=== PATIENT | female | born 1950 | race Caucasian/White ===

== ENCOUNTER → 2018-02-23 | Outpatient (CLI) | payer MEDICARE ==
--- NOTE | 2018-02-23 13:29 | MM ---
Reason for exam: screening (asymptomatic). Last mammogram was performed 7 years and 9 months ago. History: Patient is postmenopausal and is nulliparous. Cyst aspiration of the left breast. Physical Findings: A clinical breast exam by your physician is recommended on an annual basis and results should be correlated with mammographic findings. MG Screening Mammo w CAD Bilateral CC and MLO view(s) were taken. Prior study comparison: May 16, 2010, bilateral digital screening mammogram. April 18, 2009, bilateral diagnostic digital mammog. There are scattered fibroglandular densities. No significant changes when compared with prior studies. ASSESSMENT: Benign, BI-RAD 2 RECOMMENDATION: Routine screening mammogram of both breasts in 1 year.
== END | disposition home or self-care (01) ==
LOC: RADMAMWWP 07:42
PROVIDERS: ATTEND Internal Medicine Geriatric Medicine
DX: Z12.31 Encounter for screening mammogram for malignant neoplasm of breast (principal)
CPT/HCPCS: 77067

== ENCOUNTER → 2018-04-24 | Outpatient (CLI) | payer MEDICARE ==
--- NOTE | 2018-04-24 15:11 | XR ---
EXAMINATION TYPE: XR shoulder complete RT DATE OF EXAM: 04/24/2018 COMPARISON: NONE HISTORY: 67-year-old female bursitis of right shoulder, pain TECHNIQUE: 3 views FINDINGS: There is narrowing of the subacromial space. Bony irregularity at the greater tuberosity. Mild degene rative spurring at the glenohumeral joint. No acute fracture, subluxation, or dislocation. Vague luce nt lesion within the proximal humeral shaft narrow zone of transition. In the absence of any known pr imary neoplasm, a benign entity is favored. A conservative three-month follow-up exam can be performe d. IMPRESSION: 1. Possible underlying rotator cuff tear. 2. Mild degenerative change of the glenohumeral joint. 3. No acute osseous abnormality seen. 4. 1.8 cm lucent lesion with narrow zone of transition in the proximal humeral shaft. Likely benign i n the absence of any known primary neoplasm. Clinically correlate. Three-month follow-up exam recomme nded.
== END | disposition home or self-care (01) ==
LOC: RADXRMAIN 10:15
PROVIDERS: ATTEND Internal Medicine Geriatric Medicine
DX: M19.011 Primary osteoarthritis, right shoulder (principal); M25.811 Other specified joint disorders, right shoulder

== ENCOUNTER 2018-08-06 05:40 | Day surgery (SDC) | payer MEDICARE ==
[2018-08-04 09:26] VITALS: BMI 28.1
--- NOTE | 2018-08-05 16:47 | HP ---
HISTORY AND PHYSICAL REASON FOR ADMISSION: Surgery scheduled 08/06/2018 HISTORY OF PRESENT ILLNESS: Veronika Mcfadden is a 68-year-old patient seen with progressive right shoulder pain. We discussed treatment options. She elected to proceed with arthroscopy. Consent was obtained. Medical clearance was provided. PAST MEDICAL HISTORY: Hyperlipidemia, asthma. PAST SURGICAL HISTORY: Cholecystectomy hysterectomy. DAILY MEDICATIONS: Aspirin, simvastatin, Ventolin inhaler, Zyrtec. ALLERGIES: None. SOCIAL HISTORY: Patient denies current tobacco use. PHYSICAL EXAMINATION: Evaluation of the right shoulder flexion 90 degrees, abduction 110 degrees. External rotation is shy of 15 degrees. Tenderness along the anterolateral rotator cuff and anterolateral acromion rotator cuff insertion site, there is some crepitation in subacromial bursal area. Impingement positive at 80 degrees. Drop-arm sign is positive. Distal neurovascular exam is intact. RADIOGRAPHS: Right shoulder radiographs revealed a type 2 anterior acromion and cystic changes of the greater tuberosity. An MRI of the right shoulder revealed a retracted rotator cuff tear with atrophy. IMPRESSION: 1. Right shoulder retracted rotator cuff tear. 2. Hypertension. 3. Hyperlipidemia. PLAN: Right shoulder arthroscopy, subacromial decompression, possible arthroscopic rotator cuff repair and debridement. Surgery is 08/06/2018. MMODL / IJN: [id number] /
[~2018-08-06 05:40] MED LIST: ceFAZolin 1,000 MG in DEXTROSE/WATER 1 50ML.BAG IV ONE
[2018-08-06] MEDS ORDERED: LIDOCAINE 1% 20 ML VIAL (10MG/ML) FOR IV START INTRADERMA PRN (05:50)
[2018-08-06] MEDS ORDERED: DEXAMETHASONE SOD PHOSPHATE 10 MG/ML 1 ML VIAL IV ONE (05:50)
[2018-08-06] MEDS ORDERED: LACTATED RINGERS 1,000 ML IV SCH (05:50)
[2018-08-06] MEDS ORDERED: SCOPOLAMINE 1.5MG/72HR PATCH TRANSDERM ONE (05:50)
[2018-08-06] MEDS ORDERED: ONDANSETRON 4 MG/2 ML VIAL IVP ONE (05:50)
[2018-08-06] MEDS ORDERED: HYDROmorphone 1 MG/ML 1 ML SYRINGE IVP PRN (05:50)
[2018-08-06] MEDS ORDERED: MIDAZOLAM 2 MG/2 ML VIAL IV PRN (05:50)
[2018-08-06] MEDS ORDERED: MIDAZOLAM 2 MG/2 ML VIAL IVP ONE (06:56)
[2018-08-06] MEDS ORDERED: PROPOFOL 10 MG/ML 20 ML VIAL IV ONE (07:22)
[2018-08-06] MEDS ORDERED: ROPIVACAINE 5 MG/ML 30 ML VIAL ONE (07:22)
[2018-08-06] MEDS ORDERED: SUCCINYLCHOLINE CHLORIDE 100 MG/5 ML SYR IV ONE (07:22)
[2018-08-06] MEDS ORDERED: MIDAZOLAM 2 MG/2 ML VIAL ONE (07:22)
[2018-08-06] MEDS ORDERED: LIDOCAINE 1% INJ 10MG/ML (20 ML MDV) ONE (07:22)
[2018-08-06] MEDS ORDERED: fentaNYL (PF) 50 MCG/ML 2 ML AMP ONE (07:22)
--- NOTE | 2018-08-06 07:30 | P.ONQ ---
Anesthesiology Proc Note - PNB - Peripheral Nerve Block Performed Right Interscalene Single Time Out Performed: Yes ([id number]) Procedure Start Time: 06:55 Procedure Stop Time: 07:05 Indication: Acute Post-Operative Pain, Dx/Pain Location (Right Shoulder Pain), Requested by physician Sedation Type: Sedate with meaningful contact maintained Preparation: Sterile Prep Position: Supine Catheter: None Needle Types: On-Q Needle Size: 50mm (2") Needle Gauge: 21 Technique: Ultrasound Injectate: 0.5% Ropivacaine (see comment for volume) (20ml) Blood Aspirated: No Pain Paresthesia on Injection Noted: No Resistance on Injection: Normal Events: Uneventful and Well Tolerated
[2018-08-06] MEDS ORDERED: LACTATED RINGERS 1,000 ML IV ONE (09:10)
--- NOTE | 2018-08-06 09:10 | P.OP ---
Date of Procedure: 08/06/18 Preoperative Diagnosis: Right shoulder rotator cuff tear Postoperative Diagnosis: 1. Right shoulder rotator cuff tear 2. Right shoulder impingement 3. Right shoulder labral tear Procedure(s) Performed: 1. Right shoulder arthroscopic rotator cuff repair 2. Right shoulder arthroscopic subacromial decompression 3. Right shoulder arthroscopic debridement labral tear Implants: 6Arthrex swivel lock anchors Anesthesia: GETA, regional (Interscalene block) Surgeon: Navin Beckford Solid Waste Collector #1: Sarmad Hanks Estimated Blood Loss (ml): 10 Pathology: none sent Condition: stable Disposition: PACU Indications for Procedure: 68-year-old patient seen with progressive right shoulder pain. After treatment options were discussed, she elected to proceed with arthroscopy. Operative Findings: see description of procedure Description of Procedure: Patient underwent an interscalene block by department of anesthesia. The patient was then taken to the operative suite. The patient underwent a general anesthetic by the department of anesthesia. The patient was placed into a lateral position and secured. There was appropriate padding of the bony prominence. Right shoulder was then prepped and draped in normal sterile orthopedic fashion. We placed the extremity in 10 pounds of longitudinal traction. A posterior incision was now made for a posterior working portal site. The trocar and cannula were inserted into the glenohumeral joint. Arthroscopy was initiated. Spinal needle was now inserted anteriorly, to ascertain the anterior working portal site. An incision was now made in that area, a trocar was inserted followed by a probe. There was superficial tearing of the anterior superior labrum. The biceps tendon was absent with evidence of previous rupture. There was an obvious massive rotator cuff tear visualized from glenohumeral side. There were grade 1/2 chondromalacia changes of the glenoid and grade 1 chondromalacia changes of the humeral head with no osteochondral tears. I debrided the superficial labral tears down to stable tissue. I removed the biceps stump. Instruments now removed from the glenohumeral joint. Utilizing the posterior working portal site, the trocar and cannula were inserted into the subacromial space. Arthroscopy initiated. I made an incision 2 fingerbreadths lateral to the acromion. I introduced my trocar followed by my ArthroCare ablator. I now began ablating thick subacromial bursal tissue, which exposed the undersurface of the anterior acromion. There was diminished subacromial space. There was a very prominent anterior acromion. A motorized bur was introduced and a subacromial decompression was performed. I also excised some osteophytes off the inferior aspect of the distal clavicle. The acromioclavicular joint had moderate arthritis. I turned my attention to the rotator cuff. There was a 4-4.5 cm rotator cuff tear. Retracted to the glenoid however with a soft tissue grasper I was able to pull it over the footprint. I debrided the margins getting down to stable tendon tissue. I introduced my motorized bur and abraded the footprint area, getting some petechial bleeding. I now made an accessory portal site off the lateral aspect of the acromion. I punched 3 holes medial for medial row fixation with the assistance of John GRIFFIN carefully tapping the punch with a mallet as I held the punch and the camera. I now introduced both anchors into the pre-punched holes and John GRIFFIN tapped them with the mallet as I held anchors and the camera. John GRIFFIN now screwed the anchors in place a while I held the anchor guide and camera. All 12 limbs of suture were now passed through good bites of rotator cuff tendon. I now punched 3 holes for lateral row fixation again I held the punch and camera while John GRIFFIN used a mallet to tap in the punch. We now passed sutures through both anchors and individually I introduced the anchors into the pre-punch holes I held the anchor guide in position with one hand holding the camera with the other hand while John GRIFFIN tensioned the sutures and screwed in the anchors one at a time. All residual suture limbs were now clipped. We had good compression of the tendon along the entire footprint. I injected 1 mL Renue intra-articular. Instruments now removed from the portal sites. All portal sites were approximated with nylon suture. Sterile dressings were applied followed by a shoulder immobilizer. Sarmad GRIFFIN assisted in this complex case. The patient was awakened, transferred to a bed, and taken to recovery in stable condition.
[2018-08-06 09:33] VITALS: TEMP 97
[2018-08-06 10:14] VITALS: BP 132/68; PULSE 91; RESP 12
== END 2018-08-06 10:45 | disposition home or self-care (01) ==
LOC: OR 05:40
PROVIDERS: ATTEND Orthopaedic Surgery
DX: M75.101 Unspecified rotator cuff tear or rupture of right shoulder, not specified as traumatic (principal); S43.491A Other sprain of right shoulder joint, initial encounter; K21.9 Gastro-esophageal reflux disease without esophagitis; M75.41 Impingement syndrome of right shoulder; J45.909 Unspecified asthma, uncomplicated; I10 Essential (primary) hypertension; E78.5 Hyperlipidemia, unspecified; M19.011 Primary osteoarthritis, right shoulder; M25.711 Osteophyte, right shoulder; Z79.82 Long term (current) use of aspirin; Z79.899 Other long term (current) drug therapy
CPT/HCPCS: 29827; 29826; 29822; 64415; C1713 ×3; C1894; C1765; J2250; J1100; J2405; J2001; J3010; J0690; J2795; J0330; J2704

== ENCOUNTER → 2019-03-02 | Outpatient (CLI) | payer MEDICARE ==
--- NOTE | 2019-03-03 14:07 | MM ---
Reason for exam: screening (asymptomatic). Last mammogram was performed 1 year ago. History: Patient is postmenopausal and is nulliparous. Cyst aspiration of the left breast. Physical Findings: A clinical breast exam by your physician is recommended on an annual basis and results should be correlated with mammographic findings. MG 3D Screening Mammo W/Cad Bilateral CC and MLO view(s) were taken. Prior study comparison: February 23, 2018, bilateral MG screening mammo w CAD. May 16, 2010, bilateral digital screening mammogram. The breast tissue is heterogeneously dense. This may lower the sensitivity of mammography. Benign appearing bilateral calcifications. No suspicious abnormality. No significant changes when compared with prior studies. ASSESSMENT: Benign, BI-RAD 2 RECOMMENDATION: Routine screening mammogram of both breasts in 1 year.
== END | disposition home or self-care (01) ==
LOC: RADMAMWWP 07:28
PROVIDERS: ATTEND Internal Medicine Geriatric Medicine
DX: Z12.31 Encounter for screening mammogram for malignant neoplasm of breast (principal)
CPT/HCPCS: 77063; 77067

== ENCOUNTER → 2019-04-23 | Outpatient (CLI) | payer MEDICARE ==
[2019-04-23 16:22] LABS: Basophils # (A) 0.1 k/uL (0-0.2); Basophils % (A) 1 %; Eosinophils # (A) 0.4 k/uL (0-0.7); Eosinophils % (A) 5 %; HCT 45.7 % (34.0-46.0); HGB 14.6 gm/dL (11.4-16.0); Lymphocytes # (A) 2.6 k/uL (1.0-4.8); Lymphocytes % (A) 30 %; MCH 29.3 pg (25.0-35.0); MCHC 31.9 g/dL (31.0-37.0); MCV 91.7 fL (80.0-100.0); Mean Platelet Volume 7.9; Monocytes # (A) 0.5 k/uL (0-1.0); Monocytes % (A) 6 %; Neutrophils % (A) 57 %; Platelet Count 214 k/uL (150-450); RBC 4.98 m/uL (3.80-5.40); RDW 14.3 % (11.5-15.5); WBC 8.8 k/uL (3.8-10.6)
[2019-04-23 16:26] LABS: Potassium 4.5 mmol/L (3.5-5.1)
== END | disposition home or self-care (01) ==
LOC: LABPAT 15:27
PROVIDERS: ATTEND Orthopaedic Surgery
DX: Z01.812 Encounter for preprocedural laboratory examination (principal); G56.01 Carpal tunnel syndrome, right upper limb
CPT/HCPCS: 36415; 80051; 85025

== ENCOUNTER 2019-04-29 10:17 | Day surgery (SDC) | payer MEDICARE ==
[2019-04-21 14:16] VITALS: BMI 29.0
--- NOTE | 2019-04-28 17:40 | HP ---
HISTORY AND PHYSICAL DATE OF SURGERY: 04/29/2019 Veronika Mcfadden is a 68-year-old patient seen with symptomatic right carpal tunnel syndrome along with a right small finger trigger finger. We discussed options for treatment. She elected to proceed with surgical intervention to include decompression of right median nerve and release A1 alex, right small finger. Consent was obtained. PAST MEDICAL HISTORY: Asthma. PAST SURGICAL HISTORY: 1. Cholecystectomy. 2. Hysterectomy. 3. Right shoulder arthroscopy. DAILY MEDICATIONS: Simvastatin, Ventolin inhaler. ALLERGIES: NONE. SOCIAL HISTORY: She denies current tobacco use. PHYSICAL EVALUATION OF THE RIGHT HAND: She has a positive carpal compression, positive carpal Tinel's causing numbness and tingling exacerbation in median nerve distribution. She has tenderness along the A1 alex of the right small finger. There is clicking and catching with range of motion. She has a good radial pulse. She has good range of motion of her digits otherwise. RADIOGRAPHS: Radiographs of the right hand and wrist reveal some osteoarthritic changes. An EMG of the upper extremity revealed carpal tunnel syndrome. IMPRESSION: 1. Right carpal tunnel syndrome. 2. Right small finger trigger finger. 3. Asthma. PLAN: Decompression, right median nerve, and release A1 alex, right small finger. MMODL / IJN: [id number] /
[~2019-04-29 10:17] MED LIST changes: +DEXAMETHASONE SOD PHOSPHATE 10 MG/ML 1 ML VIAL IV ONE; +HYDROmorphone 0.5 MG/0.5 ML SYRINGE IVP PRN; +LACTATED RINGERS 1,000 ML IV SCH; +LIDOCAINE 1% 20 ML VIAL (10MG/ML) FOR IV START INTRADERMA PRN; -ceFAZolin 1,000 MG in DEXTROSE/WATER 1 50ML.BAG IV ONE
[2019-04-29 10:49] VITALS: TEMP 98.5
[2019-04-29] MEDS ORDERED: ONDANSETRON 4 MG/2 ML VIAL IVP ONE (11:18)
[2019-04-29] MEDS ORDERED: PROPOFOL 10 MG/ML 20 ML VIAL IV ONE (11:23)
[2019-04-29] MEDS ORDERED: fentaNYL (PF) 50 MCG/ML 2 ML AMP ONE (11:23)
[2019-04-29] MEDS ORDERED: LIDOCAINE 1% INJ 10MG/ML (20 ML MDV) ONE (11:23)
[2019-04-29] MEDS ORDERED: MIDAZOLAM 2 MG/2 ML VIAL ONE (11:23)
[2019-04-29] MEDS ORDERED: BUPIVACAINE (PF) 0.25% 30 ML VIAL SQ ONE ×2 (11:38→11:41)
--- NOTE | 2019-04-29 12:09 | P.OP ---
Date of Procedure: 04/29/19 Preoperative Diagnosis: 1. Right carpal tunnel syndrome 2. Right small finger trigger finger Postoperative Diagnosis: Same Procedure(s) Performed: 1. Decompression right median nerve 2. Release A1 alex right small finger Anesthesia: MAC, local Surgeon: Navin Beckford Estimated Blood Loss (ml): 1 Pathology: none sent Condition: stable Disposition: PACU Indications for Procedure: 68-year-old patient seen with symptomatic right carpal tunnel syndrome as well as a symptomatic right small finger trigger finger. After having treatment options discussed, she elected to proceed with decompression right median nerve and release A1 alex right small finger. Operative Findings: see description of procedure Description of Procedure: The patient was taken to the operative suite. Patient received preoperative IV antibiotics. The patient received IV sedation by the department of anesthesia. A well-padded tourniquet was placed proximal right upper extremity. The right upper extremity was prepped and draped in the normal sterile orthopedic fashion. Both proposed incision sites were infiltrated with quarter percent Marcaine totaling 15 mL. Once sufficient local analgesia was noted the extremity was elevated and tourniquet insufflated to 250. I made an incision beginning at the distal volar wrist crease extending 3 cm sharply through skin in line with the fourth metacarpal. I now dissected down through the palmar fascia to the transverse carpal ligament. I now incised the transverse carpal ligament. I now completed the release of transcarpal ligament both proximally and distally with blunt Metzenbaums. There was good complete release of the transverse carpal ligament with good decompression of the nerve. I now turned my attention to the A1 alex area the right small finger. I made an incision measuring approximately 2 cm sharply through skin. I now carefully dissected down to the A1 alex. Identified the A1 alex. I release A1 alex with blunt tenotomies. There was good complete release of the A1 alex. There was good excursion of the tendon with no impingement. Both incisions had good hemostasis. We irrigated both incisions. Skin margins of both incision sites were proximal nylon suture. Sterile dressings were applied. The tourniquet was now released with immediate capillary refill noted. I applied sterile web roll followed by a sterile dressing. The patient had a procedure well. The patient was awakened and transferred to recovery stable condition.
[2019-04-29 12:37] VITALS: BP 143/83; PULSE 88; RESP 16
== END 2019-04-29 12:45 | disposition home or self-care (01) ==
LOC: OR 10:17
PROVIDERS: ATTEND Orthopaedic Surgery
DX: G56.01 Carpal tunnel syndrome, right upper limb (principal); M65.351 Trigger finger, right little finger; J45.909 Unspecified asthma, uncomplicated; E78.5 Hyperlipidemia, unspecified; Z79.82 Long term (current) use of aspirin; Z79.899 Other long term (current) drug therapy; Z90.49 Acquired absence of other specified parts of digestive tract; Z90.710 Acquired absence of both cervix and uterus; Z98.890 Other specified postprocedural states
CPT/HCPCS: 64721; 26055; J2250; J1100; J2405; J0690; J2001; J3010; J2704

== ENCOUNTER → 2019-10-26 | Outpatient (CLI) | payer MEDICARE ==
--- NOTE | 2019-10-26 10:42 | XR ---
EXAMINATION TYPE: XR chest 2V DATE OF EXAM: 10/26/2019 COMPARISON: None INDICATION: Cough TECHNIQUE: Frontal and lateral views of the chest are obtained. FINDINGS: The heart size is normal. The pulmonary vasculature is normal. The lungs are clear. IMPRESSION: 1. No acute pulmonary process.
== END | disposition home or self-care (01) ==
LOC: RADXRMAIN 10:09
PROVIDERS: ATTEND Internal Medicine Geriatric Medicine
DX: J45.991 Cough variant asthma (principal)
CPT/HCPCS: 71046

== ENCOUNTER → 2020-07-19 | Outpatient (CLI) | payer MEDICARE ==
--- NOTE | 2020-07-25 11:42 | MM ---
Reason for exam: screening (asymptomatic). Last mammogram was performed 1 year and 5 months ago. History: Patient is postmenopausal and is nulliparous. Cyst aspiration of the left breast. Physical Findings: A clinical breast exam by your physician is recommended on an annual basis and results should be correlated with mammographic findings. MG 3D Screening Mammo W/Cad Bilateral CC and MLO view(s) were taken. Prior study comparison: March 02, 2019, bilateral MG 3d screening mammo w/cad. February 23, 2018, bilateral MG screening mammo w CAD. The breast tissue is heterogeneously dense. This may lower the sensitivity of mammography. No significant changes when compared with prior studies. ASSESSMENT: Benign, BI-RAD 2 RECOMMENDATION: Routine screening mammogram of both breasts in 1 year.
== END | disposition home or self-care (01) ==
LOC: RADMAMWWP 14:56
PROVIDERS: ATTEND Internal Medicine Geriatric Medicine
DX: Z12.31 Encounter for screening mammogram for malignant neoplasm of breast (principal)
CPT/HCPCS: 77063; 77067

== ENCOUNTER → 2021-09-14 | Outpatient (CLI) | payer MEDICARE ==
--- NOTE | 2021-09-17 13:16 | MM ---
Reason for exam: screening (asymptomatic). Last mammogram was performed 1 year and 2 months ago. History: Patient is postmenopausal and is nulliparous. Cyst aspiration of the left breast. Physical Findings: A clinical breast exam by your physician is recommended on an annual basis and results should be correlated with mammographic findings. MG 3D Screening Mammo W/Cad Bilateral CC and MLO view(s) were taken. XCCL view(s) were taken of the left breast. Prior study comparison: July 19, 2020, bilateral MG 3d screening mammo w/cad. March 02, 2019, bilateral MG 3d screening mammo w/cad. The breast tissue is heterogeneously dense. This may lower the sensitivity of mammography. There is chronic nodularity in the left breast. Benign secretory and some grouped course calcifications are unchanged. No significant changes when compared with prior studies. ASSESSMENT: Benign, BI-RAD 2 RECOMMENDATION: Routine screening mammogram of both breasts in 1 year. Patient should continue monthly self breast exams. A negative report should not preclude additional follow up of suspicious palpable abnormalities.
== END | disposition home or self-care (01) ==
LOC: RADMAMWWP 11:55
PROVIDERS: ATTEND Internal Medicine Geriatric Medicine
DX: Z12.31 Encounter for screening mammogram for malignant neoplasm of breast (principal); Z78.0 Asymptomatic menopausal state
CPT/HCPCS: 77063; 77067

== ENCOUNTER → 2022-09-16 | Outpatient (CLI) | payer MEDICARE ==
--- NOTE | 2022-09-16 09:29 | BD ---
EXAMINATION TYPE: Axial Bone Density DATE OF EXAM: 09/16/2022 COMPARISON: BASELINE CLINICAL HISTORY: 72 years old Female. ICD-10 CODE: M81.0 age related osteoporosis Height: 61.5 Weight: 156 FRAX RISK QUESTIONS: Family History (Parent hip fracture): NO History of Fracture in Adulthood: NO Secondary Osteoporosis: NO Rheumatoid Arthritis: NO RISK FACTORS HISTORY OF: Family History of Osteoporosis: NO Active: YES Diet low in dairy products/other sources of calcium: NO Postmenopausal woman: YES Lost more than 2 inches in height since high school: NO Frequent falls: NO Poor Health: NO MEDICATIONS: Additional Medications: YES BABY ASPIRIN , CALCUIM , CHOLESTEROL, ZYRTEC EXAM MEASUREMENTS: Bone mineral densitometry was performed using the [employer] System. Bone mineral density as measured about the Lumbar spine is: ----- L1-L4(G/cm2): 1.334 T Score Values are as follows: ----- L1: -0.2 ----- L2: 0.1 ----- L3: 2.5 ----- L4: 2.2 ----- L1-L4: 1.3 Bone mineral density BASELINE Bone mineral density about the R hip (g/cm2): 0.911 Bone mineral density about the L hip (g/cm2): 0.898 T Score values are as follows: -----R Neck: -1.6 -----L Neck: -1.6 -----R Total: -0.8 -----L Total: -0.9 Bone mineral density BASELINE FRAX%s: The graph provided illustrates a 11.2% chance for a major osteoporotic fx and a 2.2% chance f or the hips probability for fx in 10 years time. IMPRESSION: Osteopenia (T Score between -2.5 and -1). There is slightly increased risk of fracture and the patient may be considered for treatment. Re-Screen 2-5 years. NOTE: T-SCORE=SD OF THE YOUNG ADULT MEAN.
--- NOTE | 2022-09-17 08:18 | MM ---
Reason for Exam: Screening (asymptomatic). Last screening mammogram was performed 12 month(s) ago. Patient History: Menarche at age 9. Patient has no children. Left ovary removed at age 46. Right ovary removed at age 46. Hysterectomy at age 46. Postmenopausal. Cyst Aspiration on the Left side. Risk Values: Veronika 5 year model risk: 2.2%. NCI Lifetime model risk: 5.0%. Prior Study Comparison: 03/02/2019 Bilateral Screening Mammogram, [facility]. 07/19/2020 Bilateral Screening Mammogram, [facility]. 09/14/2021 Bilateral Screening Mammogram, [facility]. Tissue Density: The breast tissue is heterogeneously dense. This may lower the sensitivity of mammography. Findings: Analyzed By CAD. There is no suspicious group of microcalcifications or new suspicious mass in either breast. Overall Assessment: Benign, BI-RAD 2 Management: Screening Mammogram of both breasts in 1 year. A clinical breast exam by your physician is recommended on an annual basis and results should be correlated with mammographic findings. Electronically signed and approved by: Blair Duran M.D. Radiologis
== END | disposition home or self-care (01) ==
LOC: RADMAMWWP 07:40
PROVIDERS: ATTEND Internal Medicine Geriatric Medicine
DX: Z12.31 Encounter for screening mammogram for malignant neoplasm of breast (principal); M85.89 Other specified disorders of bone density and structure, multiple sites; M81.0 Age-related osteoporosis without current pathological fracture; Z78.0 Asymptomatic menopausal state; Z98.890 Other specified postprocedural states
CPT/HCPCS: 77063; 77067; 77080

== ENCOUNTER → 2023-03-12 | Outpatient (CLI) | payer MEDICARE ==
--- NOTE | 2023-03-12 11:50 | XR ---
EXAMINATION TYPE: XR shoulder complete RT DATE OF EXAM: 03/12/2023 COMPARISON: NONE HISTORY: Pain from fall TECHNIQUE: Right Shoulder examined in 3 projections. FINDINGS: The humeral head articulates with the glenoid. The acromio-clavicular junction is normal. No acute fractures or dislocations are evident. A follow up study can be performed 7-10 days from acute trauma for continued pain. MRI can be perfor med if soft tissue evaluation would be of benefit. IMPRESSION: 1. No acute osseous right shoulder abnormality.
--- NOTE | 2023-03-12 11:57 | XR ---
EXAMINATION TYPE: XR humerus RT DATE OF EXAM: 03/12/2023 COMPARISON: None HISTORY: Fall, pain TECHNIQUE: 2 view right humerus FINDINGS: Humeral head articulates with the glenoid. There may be some elevation of the humeral head in relation to the glenoid and narrowing of the acromioclavicular junction. Chronic rotator cuff tear is not excluded. No acute fractures or dislocations are evident. IMPRESSION: 1. No acute osseous abnormality right humerus. 2. Consider rotator cuff tear, MRI could be performed as clinically indicated
--- NOTE | 2023-03-12 11:59 | XR ---
EXAMINATION TYPE: XR ribs RT w pa chest xray DATE OF EXAM: 03/12/2023 COMPARISON: Chest x-ray 10/26/2019 HISTORY: Fall, pain TECHNIQUE: AP chest with two-view right ribs FINDINGS: Heart size normal. Pulmonary vasculature is normal. Lungs are clear. No pneumothorax is evident. No displaced rib fractures are identified. Follow-up can be performed as clinically indicated. There is some mild costochondral cartilage calcification noted. IMPRESSION: 1. No acute right rib fractures identified. 2. No acute pulmonary process.
== END | disposition home or self-care (01) ==
LOC: RADXRMAIN 11:02
PROVIDERS: ATTEND Physician Assistant
DX: S23.41XA Sprain of ribs, initial encounter (principal); M79.601 Pain in right arm; M25.511 Pain in right shoulder; W19.XXXA Unspecified fall, initial encounter

== ENCOUNTER → 2023-03-31 | Outpatient (CLI) | payer MEDICARE ==
--- NOTE | 2023-04-02 08:51 | MR ---
EXAMINATION TYPE: MR shoulder RT wo con DATE OF EXAM: 03/31/2023 8:32 AM COMPARISON: NONE HISTORY: Rt shoulder pain, fall, prior surgery on RTC TECHNIQUE: Multiplanar multispin echo imaging of the right shoulder was performed. FINDINGS: Rotator cuff : Postoperative changes of prior rotator cuff repair. There is high-grade full-thickness partial tear of the supraspinatus tendon proximal to the critical zone with fluid filled gap of 7.1 mm. Mild retraction is seen. Several fibers remain intact. There is also associated tendinosis of the supraspinatus tendon. There is tendinosis of subscapularis tendon with partial tear noted. There is also intrasubstance tear of the infraspinatus tendon. Bursa: Small joint effusion noted. Musculature: There is no muscular tear, contusion, or atrophy. Acromioclavicular joint : There are mild degenerative changes of the acromioclavicular joint. There is no anterior or lateral acromial downsloping. Osseous structures : There are no fractures or regions of abnormal bone marrow signal intensity. Long biceps tendon : The biceps tendon is normally situated within the bicipital groove. No complete or partial biceps tendon tear is present. Glenohumeral Joint fluid : There is no glenohumeral joint effusion. Cartilage and Bone : Screw defects noted within the humeral head. No focal hyaline cartilage defects are noted. No Hill-Sachs, reverse Hill-Sachs, or bony Bankart lesions are seen. Labrum : Anterior inferior glenoid labral tear noted. OTHER FINDINGS : none IMPRESSION: 1. Postoperative changes of prior rotator cuff repair. There is high-grade full-thickness partial tea r of the supraspinatus tendon proximal to the critical zone with fluid filled gap of 7.1 mm. Mild ret raction is seen. Several fibers remain intact. There is also associated tendinosis of the supraspinat us tendon. There is tendinosis of subscapularis tendon with partial tear noted. There is also intrasu bstance tear of the infraspinatus tendon. 2.Anterior inferior glenoid labral tear noted.
== END | disposition home or self-care (01) ==
LOC: RADMRIMAIN 07:40
PROVIDERS: ATTEND Internal Medicine Geriatric Medicine
DX: S43.432A Superior glenoid labrum lesion of left shoulder, initial encounter (principal); S46.011A Strain of muscle(s) and tendon(s) of the rotator cuff of right shoulder, initial encounter; M67.813 Other specified disorders of tendon, right shoulder; Z98.890 Other specified postprocedural states

== ENCOUNTER 2023-06-18 05:31 | Day surgery (SDC) | payer MEDICARE ==
[2023-06-16 10:25] VITALS: BMI 27.4
--- NOTE | 2023-06-17 20:20 | HP ---
HISTORY AND PHYSICAL DATE OF SURGERY: 06/18/2023. HISTORY OF PRESENT ILLNESS: Veronika Mcfadden is a 73-year-old patient seen with progressive right shoulder pain. After treatment options were discussed, she elected to proceed with right shoulder arthroscopy. Consent regarding the procedure was obtained. Preoperative medical clearance was provided by Dr. Renan Ponce. PAST MEDICAL HISTORY: Asthma. PAST SURGICAL HISTORY: Cholecystectomy, hysterectomy, shoulder arthroscopy, carpal tunnel release, and trigger finger release. DAILY MEDICATIONS: 1. Rosuvastatin. 2. Zyrtec. ALLERGIES: None. SOCIAL HISTORY: She denies tobacco use. PHYSICAL EVALUATION OF THE RIGHT SHOULDER: Flexion is 130 degrees. Abduction is 100 degrees. External rotation is 10 degrees with severe weakness. Tenderness along the anterolateral acromion and rotator cuff insertion. Impingement is positive at 80. Drop-arm sign is positive. Distal neurovascular exam is intact. IMAGING STUDIES: Radiographs of the right shoulder revealed evidence for acromioclavicular joint osteoarthritis and cystic changes of the tuberosity. MRI right shoulder revealed rotator cuff tear and labral tear. IMPRESSION: 1. Right shoulder impingement with rotator cuff tear. 2. Right shoulder labral tear. 3. Hyperlipidemia. PLAN: Right shoulder arthroscopy with rotator cuff repair and debridement. MMODL / IJN: [id number] /
[~2023-06-18 05:31] MED LIST changes: -DEXAMETHASONE SOD PHOSPHATE 10 MG/ML 1 ML VIAL IV ONE; +DEXAMETHASONE SOD PHOSPHATE 4 MG/ML 1 ML VIAL IV ONE; -HYDROmorphone 0.5 MG/0.5 ML SYRINGE IVP PRN; +LIDOCAINE 1% (10MG/ML) FOR IV START INTRADERMA PRN; -LIDOCAINE 1% 20 ML VIAL (10MG/ML) FOR IV START INTRADERMA PRN; +ONDANSETRON 4 MG/2 ML VIAL IVP ONE
[2023-06-18] MEDS ORDERED: ONDANSETRON 4 MG/2 ML VIAL ONE (06:19)
[2023-06-18] MEDS ORDERED: MIDAZOLAM 2 MG/2 ML VIAL IVP ONE (06:51)
[2023-06-18] MEDS ORDERED: MIDAZOLAM 2 MG/2 ML VIAL IV PRN (07:00)
[2023-06-18] MEDS ORDERED: HYDROmorphone 0.5 MG/0.5 ML SYRINGE IVP PRN (07:00)
[2023-06-18 07:05] VITALS: RESP 16
[2023-06-18] MEDS ORDERED: LIDOCAINE 1% INJ 10MG/ML (20 ML MDV) ONE (07:25)
[2023-06-18] MEDS ORDERED: ROPIVACAINE 5 MG/ML 30 ML VIAL ONE (07:25)
[2023-06-18] MEDS ORDERED: PROPOFOL 10 MG/ML 20 ML VIAL IV ONE (07:25)
[2023-06-18] MEDS ORDERED: ePHEDrine 50 MG/ML 1 ML VIAL ONE (07:25)
[2023-06-18] MEDS ORDERED: NEOSTIGMINE 1 MG/ML 10 ML VIAL ONE (07:25)
[2023-06-18] MEDS ORDERED: GLYCOPYRROLATE 0.2 MG/ML 2 ML VIAL ONE (07:25)
[2023-06-18] MEDS ORDERED: SUCCINYLCHOLINE CHLORIDE 200 MG/10 ML VIAL IV ONE (07:25)
[2023-06-18] MEDS ORDERED: fentaNYL (PF) 50 MCG/ML 2 ML AMP ONE (07:25)
[2023-06-18] MEDS ORDERED: DEXAMETHASONE SOD PHOSPHATE 4 MG/ML 1 ML VIAL ONE (07:25)
[2023-06-18] MEDS ORDERED: ROCURONIUM 10 MG/ML (5 ML VIAL) IV ONE (07:25)
[2023-06-18] MEDS ORDERED: ALBUTEROL HFA INHALER INHALATION ONE (07:25)
[2023-06-18] MEDS ORDERED: KETOROLAC 15 MG/ML 1 ML VIAL ONE (07:25)
--- NOTE | 2023-06-18 08:46 | P.ANPRN ---
Procedure Note - Anesthesia - Nerve Block Performed Right Interscalene Single Time Out Performed: Yes ([id number]) Date of Procedure: 06/18/23 Procedure Start Time: 06:53 Procedure Stop Time: 06:58 Location of Patient: PreOp Indication: Acute Post-Operative Pain, Requested by Surgeon Sedation Type: Sedate with meaningful contact maintained Preparation: Sterile Prep Position: Sitting Catheter: None Needle Types: Pajunk Needle Gauge: Other (see comment) (22) Ultrasound used to visualize needle placement: Yes Ultrasound used to observe medication spread: Yes Injectate: 0.5% Ropivacaine (see comment for volume) (20 mL of 0.5% ropivacaine mixed with 40 MG of dexamethasone) Blood Aspirated: No Pain Paresthesia on Injection Noted: No Resistance on Injection: Normal Image Stored and Saved: Yes Events: Uneventful and Well Tolerated
--- NOTE | 2023-06-18 09:05 | P.OP ---
Date of Procedure: 06/18/23 Preoperative Diagnosis: Right shoulder impingement Postoperative Diagnosis: 1. Right shoulder massive rotator cuff 2. Right shoulder impingement 3. Right shoulder acromioclavicular joint osteoarthritis 4. Right shoulder loose body 5. 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 Right shoulder arthroscopic rotator cuff repair 2. Right shoulder arthroscopic subacromial decompression 3. Right shoulder arthroscopic Lincoln procedure 4. Right shoulder arthroscopic removal loose body Implants: 3Arthrex 4.75 swivel lock anchors Anesthesia: GETA, regional (Interscalene block) Surgeon: Navin Beckford Plate Molder #1: Sarmad Hanks Estimated Blood Loss (ml): 11 Pathology: none sent Condition: stable Disposition: PACU (Noted) Indications for Procedure: 73-year-old patient seen with amish shoulder pain. After treatment options were discussed, she elected to proceed with arthroscopy. Operative Findings: see description of procedure Description of Procedure: Patient underwent an interscalene block by department of anesthesia. The patient was then taken to the operative suite. The patient underwent a general anesthetic by the department of anesthesia. The patient was placed into a lateral position and secured. There was appropriate padding of the bony prominence. Right shoulder was then prepped and draped in normal sterile orthopedic fashion. We placed the extremity in 10 pounds of longitudinal traction. A posterior incision was now made for a posterior working portal site. The trocar and cannula were inserted into the glenohumeral joint. Arthroscopy was initiated. Spinal needle was now inserted anteriorly, to ascertain the anterior working portal site. An incision was now made in that area, a trocar w as inserted followed by a probe. The biceps was absent. There was an area of grade 4 chondromalacia involving the anterior aspect of the humeral head measuring 1 x 2 cm. There were no osteochondral flap tears present. The labrum was frayed but no significant tearing. I did run into a loose body. I introduced loose body forceps. That without difficulty. At this point instruments removed from glenohumeral joint. Utilizing the posterior working portal site, the trocar and cannula were inserted into the subacromial space. Arthroscopy initiated. I made an incision 2 fingerbreadths lateral to the acromion. I introduced my trocar followed by my ArthroCare ablator. I now began ablating thick subacromial bursal tissue, which exposed the undersurface of the anterior acromion. There was diminished subacromial space. There was a very prominent anterior acromion. A motorized bur was introduced and a subacromial decompression was performed. I also excised some osteophytes off the inferior aspect of the distal clavicle. The AC joint was visualized and noted to be fairly arthritic. The motorized bur was introduced in the anterior portal site and a Lincoln procedure was performed without difficulty, decompressing the AC joint nicely. I turned my attention to the rotator cuff. There was a 2-1/2 cm tear involving the distal supraspinatus. There was evidence for previous repair. There was a large intrasubstance tear involving the supraspinatus tendon as well that measured approximately 3.5 cm. I debrided all the margins getting down to stable tendon tissue. I started by repairing the intrasubstance tear with [id number] sutures. I passed 5 [id number] sutures with the assistance of John GRIFFIN. I now repaired the intrasubstance tear in a [id number] fashion. We good repair of the intrasubstance tear. I now abraded the footprint with a motorized bur. I now created assembler liquid center portal site off the lateral acromion. I punched the hole for insertion of the medial anchor. I inserted one Arthrex 4.75 anchor with 3 sutures. I now passed all substance limbs of suture through good bites of rotator cuff tendon. I also passed 2 additional sutures to augment this repair. I now punched to holes lateral for lateral fixation. I now crisscrossed the sutures. I started anteriorly and passed 4 limbs of suture through the eyelet of a Arthrex 4.75 swivel lock anchor. I placed the eyelet into the pre-punch hole. I held in position while John GRIFFIN tension all 4 limbs of suture and Depuy the anchor with good fixation noted. We now passed remaining for suture limbs through the eyelet of a 4.75 swivel lock anchor. I placed into the posterior lateral pre-punch hole. I held in position while John GRIFFIN tension all 4 suture limbs and deployed that anchor with good fixation noted. All residual suture limbs were now clipped. We had good compression of the tendon along the entire footprint. Instruments now removed from the portal sites. All portal sites were approximated with nylon suture. Sterile dressings were applied followed by a shoulder immobilizer. Sarmad GRIFFIN assisted in this complex case. The patient was awakened, transferred to a bed, and taken to recovery in stable condition.
[2023-06-18 09:42] VITALS: TEMP 97.9
[2023-06-18 10:43] VITALS: BP 118/74; PULSE 75
== END 2023-06-18 10:40 | disposition home or self-care (01) ==
LOC: OR 05:31
PROVIDERS: ATTEND Orthopaedic Surgery
DX: M75.41 Impingement syndrome of right shoulder (principal); S43.431A Superior glenoid labrum lesion of right shoulder, initial encounter; M75.101 Unspecified rotator cuff tear or rupture of right shoulder, not specified as traumatic; E78.5 Hyperlipidemia, unspecified; M19.011 Primary osteoarthritis, right shoulder; M24.011 Loose body in right shoulder; M94.211 Chondromalacia, right shoulder; G89.18 Other acute postprocedural pain; J45.909 Unspecified asthma, uncomplicated; Z90.710 Acquired absence of both cervix and uterus; Z90.79 Acquired absence of other genital organ(s); Z79.899 Other long term (current) drug therapy; Z79.890 Hormone replacement therapy; X58.XXXA Exposure to other specified factors, initial encounter
CPT/HCPCS: 64415; 29827; 29826; C1713 ×2; C1894; J2250; J0330; J1100; J2710; J0690; J2405; J2001; J3010; J2795; J1885; J2704

== ENCOUNTER → 2023-09-24 | Outpatient (CLI) | payer MEDICARE ==
--- NOTE | 2023-09-25 10:04 | MM ---
Reason for Exam: Screening (asymptomatic). Last screening mammogram was performed 12 month(s) ago. Patient History: Menarche at age 9. Patient has no children. Left ovary removed at age 46. Right ovary removed at age 46. Hysterectomy at age 46. Postmenopausal. Cyst Aspiration on the Left side. Risk Values: Veronika 5 year model risk: 2.2%. NCI Lifetime model risk: 4.7%. Prior Study Comparison: 07/19/2020 Bilateral Screening Mammogram, [facility]. 09/14/2021 Bilateral Screening Mammogram, [facility]. 09/16/2022 Bilateral MG 3D screening mammo w/cad, [facility]. Tissue Density: The breast tissue is heterogeneously dense. This may lower the sensitivity of mammography. Findings: Analyzed By CAD. There is no suspicious group of microcalcifications or new suspicious mass. Benign-appearing calcifications bilaterally. Overall Assessment: Benign, BI-RAD 2 Management: Screening Mammogram of both breasts in [address] [facility] will attempt to contact patient to return for supplemental views and ultrasound if indicated. Patient should continue monthly self-breast exams. A clinical breast exam by your physician is recommended on an annual basis. This exam should not preclude additional follow-up of suspicious palpable abnormalities. Note on Veronika scores and lifetime risk: 1. A Veronika score greater than 3% is considered moderate risk. If this is the case, consider specialist referral to assess eligibility for a risk reducing agent. 2. If overall lifetime risk for the development of breast cancer is 20% or higher, the patient may qualify for future screening with alternating mammogram and breast MRI. Electronically signed and approved by: Keenan Sierra DO
== END | disposition home or self-care (01) ==
LOC: RADMAMWWP 07:53
PROVIDERS: ATTEND Internal Medicine Geriatric Medicine
DX: Z12.31 Encounter for screening mammogram for malignant neoplasm of breast (principal); Z78.0 Asymptomatic menopausal state
CPT/HCPCS: 77063; 77067

== ENCOUNTER → 2024-06-22 | Outpatient (CLI) | payer MEDICARE ==
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
== END | disposition home or self-care (01) ==
LOC: RADXRMAIN 17:12
PROVIDERS: ATTEND Physician Assistant
DX: M79.672 Pain in left foot (principal)

== ENCOUNTER → 2024-11-03 | Outpatient (CLI) | payer MEDICARE ==
[2024-11-03 16:30] LABS: INR 0.9 (<1.2)
[2024-11-03 18:35] LABS: HCT 44.2 % (37.2-46.3); HGB 14.5 g/dL (12.0-15.0); MCH 28.7 pg (27.0-32.0); MCHC 32.8 g/dL (32.0-37.0); MCV 87.4 FL (80.0-97.0); Mean Platelet Volume 11.5 FL (9.5-12.2); NRBC Per 100 WBC 0 X 10*3/uL (0.00-0.01); Platelet Count 174 X 10*3/uL (140-440); RBC 5.06 X 10*6/uL (4.10-5.20); RDW 13.9 % (11.5-14.5); WBC 8.24 X 10*3/uL (4.50-10.00)
[2024-11-03 18:42] LABS: Anion Gap 9.9 mmol/L (4.00-12.00); Carbon Dioxide 23.1 mmol/L (21.6-31.8); Potassium 4.4 mmol/L (3.5-5.5)
== END | disposition home or self-care (01) ==
LOC: LABWHC1 15:05
PROVIDERS: ATTEND Internal Medicine Geriatric Medicine
DX: Z01.812 Encounter for preprocedural laboratory examination (principal); R79.1 Abnormal coagulation profile
CPT/HCPCS: 36415; 80051; 85027; 85610; 87070